=== PATIENT | male | born 1995 | race Caucasian/White ===

== ENCOUNTER 2017-01-18 22:27 | Inpatient (IN) | payer MEDICAID ==
[~2017-01-18] VITALS: Ht 193 cm; Wt 74.8 kg
[2017-01-18 23:22] LABS: BASOPHIL % 0.4 % (0-2); PLATELET COUNT 291 x10^3mcL (130-400); RED CELL DISTRIBUTION WIDTH 13.1 % (11.5-14.5)
[2017-01-18 23:39] LABS: FREE T4 1.11 ng/dL (0.76-1.46)
[2017-01-19] VITALS (7 sets, daily range): BP systolic 100–125; BP diastolic 62–69
[2017-01-19] LABS: ALBUMIN 4.6 g/dL (3.4-5.0); ALKALINE PHOSPHATASE 65 U/L (46-116); ALT/SGPT 36 U/L (16-63); AST/SGOT 65 U/L (15-37); BILIRUBIN TOTAL 1.1 mg/dL (0.20-1.00); CALCIUM 9.9 mg/dL (8.5-10.1); CARBON DIOXIDE 26.7 mmol/L (21-32); CHLORIDE SERUM 104 mmol/L (98-107); CREATININE SERUM 1.5 mg/dL (0.7-1.3); GFR1 > 60 mL/min; GLUCOSE SERUM 133 mg/dL (74-106); LIPASE 103 IU/L (73-393); POTASSIUM SERUM 3.8 mmol/L (3.5-5.1); SODIUM SERUM 142 mmol/L (136-145)
[2017-01-19 00:01] LABS: TOTAL PROTEIN, SERUM 8.5 g/dL (6.4-8.2)
[2017-01-19 02:47] LABS: CHOLESTEROL/HDL RATIO 2.4; MAGNESIUM 2.3 mg/dL (1.8-2.4); PHOSPHOROUS 3.2 mg/dL (2.5-4.9)
[2017-01-19 02:51] LABS: T3 TOTAL 0.97 ng/mL
[2017-01-19 02:57] LABS: FREE T4 1.1 ng/dL (0.76-1.46); FREE THYROXINE INDEX 3.1 ug/dL (1.4-4.5); T4(THYROXINE) 8.7 ug/dL (4.7-13.3)
[2017-01-19 10:36] LABS: UA SPECIFIC GRAVITY >=1.030 (1.005-1.035); microscopic required? YES; urine erythrocyte NEGATIVE (NEGATIVE)
[2017-01-19 10:46] LABS: AMPHETAMINE QUAL UR NONE DETECTED (NEG <=1000)
[2017-01-20 06:24] VITALS: BP 110/69
[2017-01-20 10:00] VITALS: BP 111/75
[2017-01-20] MEDS ORDERED: HALOPERIDOL2 MG PO (11:59)
[2017-01-20] MEDS ORDERED: QUETIAPINE FUMA25 M1 PO (11:59)
[2017-01-20 14:00] VITALS: BP 107/67
[2017-01-20 14:03] VITALS: BP 110/69
[2017-01-20 17:58] VITALS: BP 114/63
[2017-01-20 22:04] VITALS: BP 123/74
[2017-01-21 09:51] VITALS: BP 114/69
[2017-01-21 16:41] VITALS: BP 114/69
[2017-01-21 17:18] VITALS: BP 114/74
== END 2017-01-21 17:35 | disposition home or self-care (01) | DRG 776 ==
LOC: ED 22:27 → DU 01-19 00:42
PROVIDERS: Emergency Medicine; ADMIT Family Medicine
DX: F19.10 Other psychoactive substance abuse, uncomplicated (principal); N17.0 Acute kidney failure with tubular necrosis; G92 Toxic encephalopathy; F99 Mental disorder, not otherwise specified; E80.6 Other disorders of bilirubin metabolism; Z59.0 Homelessness; Z68.20 Body mass index [BMI] 20.0-20.9, adult
CPT/HCPCS: 83880; 84439; G0480; J0696; J1630; J7030; Q0092